=== PATIENT | female | born 1990 | race Caucasian/White ===

== ENCOUNTER 2017-03-22 21:28 | Emergency (ER) | payer OTHER ==
[~2017-03-22] VITALS: Ht 154.9 cm; Wt 59.0 kg
[2017-03-22 21:58] VITALS: Ht 154.9 cm; Wt 59.0 kg
--- NOTE | 2017-03-22 23:48 | ERA ---
ER Documentation Chief Complaint Date/Time DATE: 03/22/17 TIME: 23:45 Chief Complaint headache x5 days. starting from back of head radiating to front. HPI This is a 26-year-old female presenting with a chief complaint of headache. Patient states that she has no headache at this time. Patient did describe a 6 out of 10 headache that was prominent in the back of the head. Patient states that the headache wrapped around the front of the head. Patient has not been on any medications and denies any medical conditions. Denies fever, worst headache of life, thunderclap headache, meningismus, temporal pain, eye pain, aura, change in vision, or new medications. The nursing notes have been reviewed and are consistent with the obtained history. Nursing notes have been reviewed and are consistent with the history given. Has no other complaints and describes no other associated manifestations. ROS All systems reviewed and are negative except as per history of present illness. Medications Home Meds Active Scripts Ibuprofen* (Motrin*) 400 Mg Tab, 400 MG PO Q6H Y for PAIN AND OR ELEVATED TEMP, #30 TAB Prov:KETAN CARREON PA-C 03/22/17 Physical Exam Vitals Vital Signs Date Time Temp Pulse Resp B/P Pulse Ox O2 Delivery O2 Flow Rate FiO2 03/22/17 21:58 98.5 74 18 135/80 100 Physical Exam Const: Healthy-appearing. Well-nourished. Well-developed. No acute distress. Head: Normocephalic, Atraumatic. Eyes: Non-injected; No discharge or foreign body. EOMI and CELESTINE bilaterally. Ears: Normal External Ears, EACs clear, TM normal bilaterally without erythema. Nose: Normal external nose; no discharge, septal deviation, or sinus tenderness. Oral: No oral edema visualized. Mucous membranes moist and pink. Neck: No cervical lymphadenopathy, masses or goiter palpated. Trachea midline. Supple ~ No meningismus. Pulm: Good air movement in upper and lower respiratory tracts. No dyspnea, stridor, tripoding or drooling. Clear to auscultation bilaterally. Cardio: Regular rate and rhythm; No murmurs, gallops or rubs auscultated. No JVD grossly observed. Radial and posterior tibial pulses 2+ bilaterally. No cyanosis. Capillary refill less than 2 seconds. Abd: Soft, non tender, non distended. No guarding, masses. Normal bowel sounds. No McBurney's point tenderness. MS: Normal motor strength, normal tone with gross examination. Skin: No petechiae or rashes. No ulcer, induration, jaundice. Good turgor. Back: No midline, flank or CVA tenderness. Ext: No edema or palpable cord. Normal movement of all extremities grossly observed. Neur: Awake, alert and oriented x3. Neurovascularly intact bilaterally. Psych: Normal Mood and Affect. Results 24 hrs Laboratory Tests Test 03/23/17 00:12 Bedside Urine pH (LAB) 7.5 Bedside Urine Protein (LAB) Negative Bedside Urine Glucose (UA) Negative Bedside Urine Ketones (LAB) Negative Bedside Urine Blood Negative Bedside Urine Nitrite (LAB) Negative Bedside Urine Leukocyte Esterase (L Negative Procedures/MDM Otherwise healthy 26-year-old female presented with a chief complaint of headache. Patient has no headache at this time and has refused pain medications. Workup includes urine dip and urine . Results came back and are unremarkable. Patient has no other complaints. I have spoke with the patient regarding their condition and future management. They have verbally responded that they understand their status and treatment plan. The patients vitals are stable, and their current condition is appropriate for discharge. The patient will be given discharge instructions with return precautions. Departure Diagnosis: Primary Impression: Tension type headache, unspecified Condition: Stable Additional Instructions: Follow up with your PCP within the next 1-3 days for a more thorough evaluation and a possible referral to a specialist. Return the the emergency department immediately if symptoms worsen or change. If you have any questions regarding medications, ask your pharmacist or us before you leave. If any adverse reactions occur while taking your medications, discontinue the treatment and return to the emergency department immediately. Take your medications as directed, and complete the entire course of treatment. KETAN CARREON PA-C Mar 22, 2017 23:48 KETAN CARREON PA-C Mar 22, 2017 23:48
[2017-03-22] MEDS ORDERED: IBUP400T22 PO (23:52)
[2017-03-23 00:06] LABS: URINE BLOOD (Dip) POC Negative (NEGATIVE)
[2017-03-25 16:10] LABS: URINE BLOOD (Dip) POC Negative (NEGATIVE)
== END 2017-03-23 01:43 | disposition home or self-care (01) ==
LOC: FTE 21:28
DX: G44.209 Tension-type headache, unspecified, not intractable (principal)
CPT/HCPCS: 81003; Z7502; 99283

== ENCOUNTER 2017-11-30 00:03 | Emergency (ER) | END 2017-11-30 02:40 | disposition home or self-care (01) ==

== ENCOUNTER 2017-12-19 22:53 | Inpatient (IN) | END 2017-12-21 18:00 | disposition home or self-care (01) | DRG 683 ==

== ENCOUNTER 2018-08-29 21:17 | Emergency (ER) | payer OTHER ==
[~2018-08-29] VITALS: Ht 152.4 cm; Wt 57.9 kg
[~2018-08-29 21:17] MED LIST: ACET500C5 PO; CIPR500T4 PO; TRAM50TA2 PO; ZOC10 PO
[2018-08-29 21:47] VITALS: BP 145/81; PULSE 68; RESP 20; Ht 152.4 cm; Wt 57.9 kg
[2018-08-29] MEDS ORDERED: ONDANSETRON (ODT) 4 MG TAB ODT STA (23:48)
[2018-08-29] MEDS ORDERED: ALBUTEROL 0.083% (NEB) 2.5 MG/3 ML AMP HHN STA (23:48)
[2018-08-30] MEDS ORDERED: predniSONE 20 MG TAB PO ONE
[2018-08-30] MEDS ORDERED: ALBU18HF INHALATION (00:38)
[2018-08-30] MEDS ORDERED: PRED20TA PO (00:38)
[2018-08-30] MEDS ORDERED: D-ME473S2 PO (00:38)
--- NOTE | 2018-08-30 00:40 | ERD ---
ER Documentation Chief Complaint Chief Complaint sore throat, fever, cough x 3 weeks HPI 28-year-old female presents with sore throat dry cough and possible wheeze for last 2 weeks. She is here with her partner with similar symptoms. She denies chest pain, abdominal pain. May have had fevers early in illness. She has had a couple episodes of nonbilious posttussive vomiting. ROS All systems reviewed and are negative except as per history of present illness. Medications Home Meds Active Scripts Dextromethorphan Hb-Promethazine Hcl* (Promethazine DM* Syrup) 473 Ml Syrup, 5 ML PO Q6 PRN for COUGH for 5 Days, ML Prov:ROCHELLE KENNY MD 08/30/18 Albuterol Sulfate* (Ventolin HFA*) 18 Gm Hfa.aer.ad, 2 PUFF INHALATION Q4H, #1 INHALER Prov:ROCHELLE KENNY MD 08/30/18 Prednisone* (Prednisone*) 20 Mg Tab, 40 MG PO DAILY for 4 Days, TAB Start August 31, 2018 Prov:ROCHELLE KENNY MD 08/30/18 Tramadol HCl (Tramadol HCl) 50 Mg Tablet, 50 MG PO Q6H PRN for ain, #20 TAB Prov:REMINGTON GARNETT 12/21/17 Ciprofloxacin Hcl* (Ciprofloxacin Hcl*) 500 Mg Tablet, 500 MG PO BID, #12 TAB Prov:REMINGTON GARNETT 12/21/17 Acetaminophen* (Tylophen*) 500 Mg Capsule, 1 CAP PO Q6H PRN for PAIN AND OR ELEVATED TEMP, #30 CAP Prov:GLENNA BLANTON PA-C 11/30/17 Reported Medications Simvastatin (Simvastatin) 10 Mg Tablet, 10 MG PO QHS, #30 TAB 12/20/17 Allergies Allergies: Coded Allergies: No Known Allergy (Unverified , 08/29/18) PMhx/Soc Medical and Surgical Hx: pt denies Medical Hx, pt denies Surgical Hx History of Surgery: No Anesthesia Reaction: No Hx Neurological Disorder: No Hx Respiratory Disorders: No Hx Psychiatric Problems: No Hx Miscellaneous Medical Probl: No Hx Alcohol Use: No Hx Substance Use: No Hx Tobacco Use: No Smoking Status: Never smoker FmHx Family History: No diabetes, No coronary disease, No other Physical Exam Vitals Vital Signs Date Temp Pulse Resp B/P (MAP) Pulse Ox O2 O2 Flow FiO2 Time Delivery Rate 08/30/18 65 16 99 21 00:13 08/29/18 98.6 68 20 145/81 100 21:47 (102) Physical Exam Const: No acute distress Head: Atraumatic Eyes: Normal Conjunctiva ENT: Normal External Ears, Nose and Mouth. He was in oropharynx normal. Neck: Full range of motion. No meningismus. Resp: Clear to auscultation bilaterally mild forced wheeze. No rales, retractions. Cardio: Regular rate and rhythm, no murmurs Abd: Soft, non tender, non distended. Normal bowel sounds Skin: No petechiae or rashes Back: No midline or flank tenderness Ext: No cyanosis, or edema Neur: Awake and alert Psych: Normal Mood and Affect Results 24 hrs Current Medications Medications Dose Sig/Susana Start Time Status Last (Trade) Ordered Route PRN Stop Time Admin Dose Reason Admin Prednisone 40 mg ONCE ONCE 08/30/18 DC 08/30/18 (Prednisone) PO 00:00 08/30/18 00:23 00:01 Ondansetron 8 mg ONCE STAT 08/29/18 DC 08/30/18 HCl (Zofran ODT 23:48 08/29/18 00:22 Odt) 23:50 Albuterol 2.5 mg ONCE STAT 08/29/18 DC 08/30/18 (Proventil HHN 23:48 08/29/18 00:13 0.083% (Neb)) 23:50 Procedures/MDM Given prednisone and albuterol treatment. Patient has no evidence of hypoxemia or respiratory distress or signs of pneumonia. She has no signs of abdominal pain or chest pain. She likely has viral URI with wheezing. She will treated with a short course of prednisone, Ventolin, treatment for cough, primary care follow-up and return precautions. The patient was stable with no new complaints during the ER course. Clinically, there is no current evidence to suggest menin gitis, sepsis, acute abdomen, pneumonia, stroke, acute coronary syndrome, pulmonary embolism, aortic dissection or any other emergent condition appearing to require further evaluation or hospitalization. Patient counseled regarding my diagnostic impression and care plan. Prior to discharge all questions answered. Pt agrees with treatment plan and understands strict return precaut ions. Pt is instructed to follow up with primary care provider within 24-48 hours. Precautionary instructions provided including instructions to return to the ER if not improving or for any worsening or changing symptoms or concerns. Departure Diagnosis: Primary Impression: URI, acute Condition: Stable Patient Instructions: Uri, Viral W/ Wheezing (Adult) Additional Instructions: Likely viral illness should resolve in the next week. Recheck for new or worsening symptoms with primary care doctor. ROCHELLE KENNY MD Aug 30, 2018 00:40
== END 2018-08-30 01:03 | disposition home or self-care (01) ==
LOC: FTE 21:17
DX: J06.9 Acute upper respiratory infection, unspecified (principal)
CPT/HCPCS: 94664; J7512; Z7502; Z7610

== ENCOUNTER 2018-11-09 18:12 | Emergency (ER) | payer OTHER ==
[~2018-11-09] VITALS: Wt 59.3 kg
[~2018-11-09 18:12] MED LIST changes: +ALBU18HF INHALATION; +D-ME473S2 PO; +PRED20TA PO
--- NOTE | 2018-11-09 20:52 | ERD ---
ER Documentation Chief Complaint Chief Complaint PAIN WITH URINATION HPI 28-year-old female, presents to the emergency department, complaining of 3 days with worsening of dysuria, pelvic pressure and mild back pain. She denies fevers no nausea or vomiting. She reports one previous UTI last year. ROS All systems reviewed and are negative except as per history of present illness. Medications Home Meds Active Scripts Phenazopyridine Hcl* (Pyridium*) 200 Mg Tab, 200 MG PO TID PRN for URINARY PAIN, #6 TAB Prov:FLAKO RICHARD MD 11/09/18 Ciprofloxacin Hcl* (Ciprofloxacin Hcl*) 250 Mg Tablet, 250 MG PO BID for 5 Days, #10 TAB Prov:FLAKO RICHARD MD 11/09/18 Dextromethorphan Hb-Promethazine Hcl* (Promethazine DM* Syrup) 473 Ml Syrup, 5 ML PO Q6 PRN for COUGH for 5 Days, ML Prov:ROCHELLE KENNY MD 08/30/18 Albuterol Sulfate* (Ventolin HFA*) 18 Gm Hfa.aer.ad, 2 PUFF INHALATION Q4H, #1 INHALER Prov:ROCHELLE KENNY MD 08/30/18 Prednisone* (Prednisone*) 20 Mg Tab, 40 MG PO DAILY for 4 Days, TAB Start August 31, 2018 Prov:ROCHELLE KENNY MD 08/30/18 Tramadol HCl (Tramadol HCl) 50 Mg Tablet, 50 MG PO Q6H PRN for ain, #20 TAB Prov:REMINGTON GARNETT 12/21/17 Ciprofloxacin Hcl* (Ciprofloxacin Hcl*) 500 Mg Tablet, 500 MG PO BID, #12 TAB Prov:REMINGTON GARNETT 12/21/17 Acetaminophen* (Tylophen*) 500 Mg Capsule, 1 CAP PO Q6H PRN for PAIN AND OR ELEVATED TEMP, #30 CAP Prov:GLENNA BLANTON PA-C 11/30/17 Reported Medications Simvastatin (Simvastatin) 10 Mg Tablet, 10 MG PO QHS, #30 TAB 12/20/17 Allergies Allergies: Coded Allergies: No Known Allergy (Unverified , 08/29/18) PMhx/Soc History of Surgery: No Anesthesia Reaction: No Hx Neurological Disorder: No Hx Respiratory Disorders: No Hx Cardiac Disorders: Yes (high cholesterol) Hx Psychiatric Problems: No Hx Miscellaneous Medical Probl: No Hx Alcohol Use: No Hx Substance Use: No Hx Tobacco Use: No Smoking Status: Never smoker FmHx Family History: No diabetes, No coronary disease Physical Exam Vitals Vital Signs Date Temp Pulse Resp B/P (MAP) Pulse Ox O2 O2 Flow FiO2 Time Delivery Rate 11/09/18 98.2 89 17 133/82 100 18:20 (99) Physical Exam Const: No acute distress Head: Atraumatic Eyes: Normal Conjunctiva ENT: Normal External Ears, Nose and Mouth. Neck: Full range of motion. No meningismus. Resp: Clear to auscultation bilaterally Cardio: Regular rate and rhythm, no murmurs Abd: Soft, non tender, non distended. Normal bowel sounds Skin: No petechiae or rashes Back: No midline or flank tenderness Ext: No cyanosis, or edema Neur: Awake and alert Psych: Normal Mood and Affect Results 24 hrs Laboratory Tests Test 11/09/18 21:12 11/09/18 21:14 Bedside Urine pH (LAB) 7.0 Bedside Urine Protein (LAB) Negative Bedside Urine Glucose (UA) Negative Bedside Urine Ketones (LAB) Negative Bedside Urine Blood Trace-intact Bedside Urine Nitrite (LAB) Negative Bedside Urine Leukocyte Esterase (L 3+ POC Beta HCG, Qualitative NEGATIVE Procedures/MDM Differential diagnosis include but not limited to: UTI, colitis, gastroenteritis, kidney stones, irritable bowel syndrome, inflammatory bowel syndrome, malabsorption syndrome, cholelithiasis, food intolerance, medication side effect, pancreatitis, diverticulitis, bowel obstruction. Low suspicion for acute abdomen Physical examination and clinical presentation consistent most likely with urinary tract infection. During the ED course the patient remained stable, no new complaints. The patient received treatment with Toradol IM presenting overall improvement of the symptoms. Results and clinical impression discussed with patient who agrees with management. The patient is stable to be treated outpatient and will be discharged home, some side effects of prescribed medications (headache, rash, nausea, vomiting, diarrhea, drowsiness, habituation, bleeding, hypertension, interactions with other medications) were reviewed. The patient was instructed to follow up with the primary care provider in the next 48h. If symptoms persist, worsen or new symptoms develop, then patient should return to the ED immediately. Instructions explained and given directly by me to the patient with acknowledgment and demonstrated understanding. Disclaimer: Inadvertent spelling and grammatical errors are likely due to EHR/dictation software use and do not reflect on the overall quality of patient care. Also, please note that the electronic time recorded on this note does not necessarily reflect the actual time of the patient encounter. Departure Diagnosis: Primary Impression: UTI (urinary tract infection) Condition: Stable Patient Instructions: Understanding Urinary Tract Infections (UTIs) Additional Instructions: Thank you very much for allowing us to participate in your care. Your health and safety is our top priority at [facility]. Call your primary care doctor TOMORROW for an appointment during the next 2-4 days and bring all the information and medications prescribed. Have prescriptions filled and follow precisely the directions on the label. If the symptoms get worse and your provider is unavailable, return to the Emergency Department immediately. FLAKO RICHARD MD Nov 09, 2018 20:52
[2018-11-09] MEDS ORDERED: CIPR-193 PO (21:35)
[2018-11-09] MEDS ORDERED: PHEN-538 PO (21:35)
[2018-11-09 21:49] VITALS: BP 122/75; PULSE 74; RESP 18
== END 2018-11-09 21:51 | disposition home or self-care (01) ==
LOC: FTE 18:12
DX: N39.0 Urinary tract infection, site not specified (principal); R10.2 Pelvic and perineal pain
CPT/HCPCS: 81003; 81025; 99283